=== PATIENT | female | born 1945 | race Caucasian/White ===

== ENCOUNTER → 2020-07-07 | Outpatient (CLI) | payer OTHER, SELFPAY ==
[2020-07-13 12:52] LABS: HPV APTIMA, High Risk Negative (Negative)
== END | disposition home or self-care (01) ==
LOC: LABSPEC 15:56
PROVIDERS: Visit Provider Obstetrics & Gynecology
DX: Z12.4 Encounter for screening for malignant neoplasm of cervix (principal)
CPT/HCPCS: 87624; 88175; G0145